=== PATIENT | female | born 1995 | race Caucasian/White ===

== ENCOUNTER 2020-07-30 08:08 | Outpatient (REF) | payer OTHER, SELFPAY ==
--- NOTE | ~2020-07-30 | XR_ITS ---
EXAMINATION: BILATERAL KNEE X-RAY CLINICAL INFORMATION: Alison Danlos syndrome COMPARISON: None TECHNIQUE: 4 views each knee FINDINGS: Bone alignment is normal. No skull fracture or dislocation is seen. Joint spaces are normal. There is no joint effusion. XR/XR knee RT 4V IMPRESSION: Normal knees.
--- NOTE | ~2020-07-30 | XR_ITS ---
EXAMINATION: BILATERAL KNEE X-RAY CLINICAL INFORMATION: Alison Danlos syndrome COMPARISON: None TECHNIQUE: 4 views each knee FINDINGS: Bone alignment is normal. No skull fracture or dislocation is seen. Joint spaces are normal. There is no joint effusion. XR/XR knee LT 4V IMPRESSION: Normal knees.
--- NOTE | ~2020-07-30 | XR_ITS ---
EXAMINATION: XR SACROILIAC JOINTS CLINICAL INFORMATION: Alison Danlos Syndrome COMPARISON: None TECHNIQUE: 3 views of the sacroiliac joints FINDINGS: The sacroiliac joints are normal. No proliferative bone reaction, ankylosis or cyst formation is seen. XR/XR sacroiliac joint min 3V IMPRESSION: Normal-appearing sacroiliac joints.
== END 2020-07-30 08:09 | disposition home or self-care (01) ==
LOC: HO.XRAY 08:08
PROVIDERS: PCP Nurse Practitioner Family; Visit Provider Nurse Practitioner Family
DX: Q79.60 Ehlers-Danlos syndrome, unspecified (principal); G89.29 Other chronic pain; M53.3 Sacrococcygeal disorders, not elsewhere classified
CPT/HCPCS: 72202; 73564

== ENCOUNTER 2024-04-18 17:24 | Emergency (ER) | payer OTHER, MEDICAID, SELFPAY ==
--- NOTE | ~2024-04-18 | XR_ITS ---
EXAMINATION: Right hand series. Right elbow series. Right forearm series. CLINICAL INFORMATION: Pain COMPARISON: None. TECHNIQUE: 2 views of the right forearm. 3 views of the right elbow. 3 views of the right hand. FINDINGS: Right hand: The bones joints and soft tissues are normal. No fracture. Right elbow: The bones joints and soft tissues are normal without fracture or joint effusion. No fracture Right forearm: Bone and surrounding soft tissues and adjacent joints are normal no fracture. XR/XR elbow RT min 3V IMPRESSION: No fracture or acute abnormality RIGHT HAND: Normal. RIGHT ELBOW: Normal. RIGHT FOREARM: Normal. Electronically signed by: Dilip Marinelli MD 04/18/2024 08:17 PM EST
--- NOTE | ~2024-04-18 | XR_ITS ---
EXAMINATION: Right hand series. Right elbow series. Right forearm series. CLINICAL INFORMATION: Pain COMPARISON: None. TECHNIQUE: 2 views of the right forearm. 3 views of the right elbow. 3 views of the right hand. FINDINGS: Right hand: The bones joints and soft tissues are normal. No fracture. Right elbow: The bones joints and soft tissues are normal without fracture or joint effusion. No fracture Right forearm: Bone and surrounding soft tissues and adjacent joints are normal no fracture. XR/XR forearm RT 2V IMPRESSION: No fracture or acute abnormality RIGHT HAND: Normal. RIGHT ELBOW: Normal. RIGHT FOREARM: Normal. Electronically signed by: Dilip Marinelli MD 04/18/2024 08:17 PM EST
--- NOTE | ~2024-04-18 | XR_ITS ---
EXAMINATION: Right hand series. Right elbow series. Right forearm series. CLINICAL INFORMATION: Pain COMPARISON: None. TECHNIQUE: 2 views of the right forearm. 3 views of the right elbow. 3 views of the right hand. FINDINGS: Right hand: The bones joints and soft tissues are normal. No fracture. Right elbow: The bones joints and soft tissues are normal without fracture or joint effusion. No fracture Right forearm: Bone and surrounding soft tissues and adjacent joints are normal no fracture. XR/XR hand wrist RT IMPRESSION: No fracture or acute abnormality RIGHT HAND: Normal. RIGHT ELBOW: Normal. RIGHT FOREARM: Normal. Electronically signed by: Dilip Marinelli MD 04/18/2024 08:17 PM [id number]
[2024-04-18 17:30] VITALS: BP 146/94; PULSE 113; O2SAT 99
[2024-04-18 17:40] VITALS: BP 146/99; PULSE 105; RESP 16; TEMP 36.1; O2SAT 99; BMI 21.0
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
[2024-04-18 21:08] VITALS: BP 133/93; PULSE 92; RESP 16; TEMP 36.8; O2SAT 100
[2024-04-18] MEDS: Acetaminophen 325 MG TABLET 650 MG PO (21:51)
[2024-04-18 21:56] VITALS: BP 133/93; PULSE 92; RESP 16; TEMP 36.8; O2SAT 100
== END 2024-04-18 21:57 | disposition home or self-care (01) ==
PROVIDERS: Emergency Provider Emergency Medicine
DX: S60.511A Abrasion of right hand, initial encounter (principal); S60.811A Abrasion of right wrist, initial encounter; S40.021A Contusion of right upper arm, initial encounter; M25.531 Pain in right wrist; M79.641 Pain in right hand; M79.601 Pain in right arm; Y04.2XXA Assault by strike against or bumped into by another person, initial encounter; Y93.89 Activity, other specified; Y92.89 Other specified places as the place of occurrence of the external cause; Y99.8 Other external cause status; Z79.899 Other long term (current) drug therapy
CPT/HCPCS: 73080; 73090; 73110; 73130; 99284